=== PATIENT | female | born 1925 | race Caucasian/White ===

== ENCOUNTER 2016-12-31 12:28 | Inpatient (IN) | payer OTHER ==
[~2016-12-31] VITALS: Ht 160 cm; Wt 60.9 kg
[~2016-12-31 12:28] MED LIST: ASPI-496 PO; ENOX40SY4 SQ; LISI-167 PO; LORA-445 PO; MORP10VI10 IVP; OXYC5TAB3 PO; POLY17PO5 PO; SENN1TAB7 PO; TEMA15CA6 PO
[2016-12-31] MEDS ORDERED: ACETAMINOPHEN 325 MG TABLET ONE (13:25)
[2016-12-31] MEDS ORDERED: ACETAMINOPHEN 325 MG TABLET PO ONE (13:30)
[2016-12-31 14:03] LABS: HEMATOCRIT 43.5 % (34.6-47.8); HEMOGLOBIN 14.8 g/dL (11.7-16.4); WHITE BLOOD COUNT 6.1 x10^3/uL (3.4-10)
[2016-12-31 14:11] LABS: BLOOD UREA NITROGEN 17 mg/dL (7-18)
[2016-12-31] MEDS ORDERED: HYDR25TA6 PO (14:15)
[2016-12-31] MEDS ORDERED: FENTANYL PF 100 MCG/2ML ONE ×2 (15:20→16:36)
[2016-12-31] MEDS: FENTANYL PF 100 MCG/2ML IVPush PRN ×2 (15:22→15:50)
[2016-12-31] MEDS ORDERED: FENTANYL PF 100 MCG/2ML IVPush PRN (16:00)
[2016-12-31] MEDS ORDERED: POTASSIUM CHLORIDE 40 MEQ in SODIUM CHLORIDE 0.9% 500 ML IV ONE (16:00)
[2016-12-31] MEDS: POTASSIUM CHLORIDE 40 MEQ in SODIUM CHLORIDE 0.9% 1,000 ML IV SCH ×2 (16:25→22:18)
[2016-12-31] MEDS ORDERED: ONDANSETRON 2MG/ML, 2ML IVPush PRN ×2 (16:30→17:30)
[2016-12-31] MEDS ORDERED: BISACODYL 10 MG SUPP PR PRN (16:30)
[2016-12-31] MEDS ORDERED: LABETALOL 5MG/ML, 20ML IVPush PRN (16:30)
[2016-12-31] MEDS ORDERED: POLYETHYLENE GLYCOL 17 GM PACKET PO PRN (16:30)
[2016-12-31] MEDS ORDERED: DOCUSATE 100 MG CAPSULE PO PRN (16:30)
[2016-12-31] MEDS ORDERED: ACETAMINOPHEN 325 MG TABLET PO PRN (16:30)
[2016-12-31] MEDS ORDERED: ONDANSETRON ODT 4 MG PO PRN (16:30)
[2016-12-31] MEDS ORDERED: morphine SULFATE 10 MG/ML, 1ML IVPush PRN (16:30)
[2016-12-31] MEDS ORDERED: MIDAZOLAM 1 MG/ML, 2ML ONE (16:36)
[2016-12-31] MEDS ORDERED: CEFAZOLIN 1,000 MG ONE (16:50)
[2016-12-31] MEDS ORDERED: EPHEDRINE 50 MG/ML, 1ML ONE (16:50)
[2016-12-31] MEDS ORDERED: DEXAMETHASONE 4 MG/ML, 1ML ONE (16:50)
[2016-12-31] MEDS ORDERED: ONDANSETRON 2MG/ML, 2ML ONE (16:50)
[2016-12-31] MEDS ORDERED: PROPOFOL 10 MG/ML, 20ML ONE (16:50)
[2016-12-31] MEDS ORDERED: FENTANYL PF 100 MCG/2ML IV PRN (17:30)
[2016-12-31] MEDS ORDERED: MEPERIDINE/PF 25MG/0.5ML IVPush PRN (17:30)
[2016-12-31] MEDS ORDERED: LABETALOL 5MG/ML, 20ML IV PRN (17:30)
[2016-12-31] MEDS ORDERED: HYDROmorphone 1 MG/ML, 1ML IV PRN (17:30)
[2016-12-31] MEDS ORDERED: hydrALAzine 20 MG/ML, 1ML IV PRN (17:30)
[2016-12-31] MEDS ORDERED: METOCLOPRAMIDE 5 MG/ML, 2ML IV PRN (17:30)
[2016-12-31] MEDS ORDERED: HYDROcodone/APAP 7.5-325MG/15ML UDC PO PRN (17:30)
[2016-12-31] MEDS: LACTATED RINGERS 1,000 ML IV SCH (20:00)
[2016-12-31] MEDS ORDERED: DO NOT GIVE MC PRN (20:00)
[2016-12-31] MEDS ORDERED: SODIUM CHLORIDE FLUSH 10ML SYR IVF PRN (20:00)
[2016-12-31] MEDS ORDERED: morphine SULFATE 10 MG/ML, 1ML IV PRN (20:00)
[2017-01-01 00:08] VITALS: BP 120/68
[2017-01-01] MEDS: HYDROcodone/APAP 5/325 TABLET PO PRN ×2 (00:47→05:49)
[2017-01-01] MEDS: CEFAZOLIN PMX 1GM/50ML 50 ML IVPB SCH ×3 (00:47→16:40)
[2017-01-01 02:39] VITALS: BP 121/75
[2017-01-01 06:30] LABS: HEMATOCRIT 35.9 % (34.6-47.8); HEMOGLOBIN 12.4 g/dL (11.7-16.4); WHITE BLOOD COUNT 6.3 x10^3/uL (3.4-10)
[2017-01-01 06:42] LABS: ASPARTATE AMINO TRANSFERASE 13 U/L (15-37); BLOOD UREA NITROGEN 13 mg/dL (7-18)
[2017-01-01] MEDS: LACTATED RINGERS 1,000 ML IV SCH ×2 (07:21→22:02)
[2017-01-01 07:27] VITALS: BP 127/74
[2017-01-01] MEDS: HYDROCHLOROTHIAZIDE 25 MG TABLET PO SCH (09:23)
[2017-01-01 14:00] VITALS: BP 123/84
[2017-01-01] MEDS ORDERED: LORazepam 0.5MG TABLET PO PRN (15:30)
[2017-01-01] MEDS: FOLIC ACID 1 MG TABLET PO SCH (16:40)
[2017-01-01] MEDS: THIAMINE 100MG TABLET PO SCH (16:40)
[2017-01-01] MEDS: MULTIVITAMIN 1 TABLET PO SCH (16:40)
[2017-01-01 19:34] VITALS: BP 104/65
[2017-01-01] MEDS ORDERED: LORazepam 1MG TABLET ONE (22:32)
[2017-01-02 01:51] VITALS: BP 126/72
[2017-01-02 05:37] LABS: BLOOD UREA NITROGEN 12 mg/dL (7-18)
[2017-01-02 06:55] VITALS: BP 146/78
[2017-01-02] MEDS: THIAMINE 100MG TABLET PO SCH (08:52)
[2017-01-02] MEDS: FOLIC ACID 1 MG TABLET PO SCH (08:52)
[2017-01-02] MEDS: HYDROCHLOROTHIAZIDE 25 MG TABLET PO SCH (08:52)
[2017-01-02] MEDS: MULTIVITAMIN 1 TABLET PO SCH (08:52)
[2017-01-02] MEDS ORDERED: POTASSIUM CHLORIDE 20 MEQ TAB.ER.PRT PO ONE (09:00)
[2017-01-02] MEDS: LACTATED RINGERS 1,000 ML IV SCH ×2 (09:46→23:54)
[2017-01-02 12:44] VITALS: BP 164/77
[2017-01-02 20:30] VITALS: BP 132/78
[2017-01-03 02:58] VITALS: BP 124/74
[2017-01-03 07:14] VITALS: BP 162/85
[2017-01-03] MEDS: THIAMINE 100MG TABLET PO SCH (09:11)
[2017-01-03] MEDS: FOLIC ACID 1 MG TABLET PO SCH (09:11)
[2017-01-03] MEDS: MULTIVITAMIN 1 TABLET PO SCH (09:11)
[2017-01-03] MEDS: HYDROCHLOROTHIAZIDE 25 MG TABLET PO SCH (09:11)
[2017-01-03] MEDS: HYDROcodone/APAP 5/325 TABLET PO PRN (09:14)
[2017-01-03 12:25] LABS: BLOOD UREA NITROGEN 12 mg/dL (7-18)
[2017-01-03 14:00] VITALS: BP 156/72
[2017-01-03] MEDS: POTASSIUM CHLORIDE 20 MEQ TAB.ER.PRT PO SCH ×2 (14:35→22:16)
[2017-01-03 20:04] VITALS: BP 149/99
[2017-01-04 02:58] VITALS: BP 149/84
[2017-01-04 06:57] VITALS: BP 146/78
[2017-01-04] MEDS: FOLIC ACID 1 MG TABLET PO SCH (07:52)
[2017-01-04] MEDS: HYDROCHLOROTHIAZIDE 25 MG TABLET PO SCH (07:52)
[2017-01-04] MEDS: MULTIVITAMIN 1 TABLET PO SCH (10:03)
[2017-01-04] MEDS: THIAMINE 100MG TABLET PO SCH (10:03)
[2017-01-04] MEDS ORDERED: THIA100T6 PO (10:28)
[2017-01-04] MEDS ORDERED: FOLI-17 PO (10:28)
[2017-01-04] MEDS ORDERED: MULT1TAB60 PO (10:28)
[2017-01-04 12:42] VITALS: BP 156/66
== END 2017-01-04 13:36 | disposition home or self-care (01) | DRG 580 ==
LOC: OR 15:44 → EDIP 15:45 → OR 15:56 → 4NOR 19:23 → DCLOUNGE 01-04 13:20
PROVIDERS: ADMIT Internal Medicine; ATTEND Internal Medicine
PROC: 0KC90ZZ Extirpation of Matter from Right Lower Arm and Wrist Muscle, Open Approach (ICD-10-PCS; 2016-12-31)
PROC: 0X3D0ZZ Control Bleeding in Right Lower Arm, Open Approach (ICD-10-PCS; principal; 2016-12-31 16:00)
DX: S50.11XA Contusion of right forearm, initial encounter (principal); E87.1 Hypo-osmolality and hyponatremia; I10 Essential (primary) hypertension; W18.30XA Fall on same level, unspecified, initial encounter; Z66 Do not resuscitate; E87.6 Hypokalemia; M54.16 Radiculopathy, lumbar region; Y93.89 Activity, other specified; Y92.89 Other specified places as the place of occurrence of the external cause; Y99.8 Other external cause status; Z90.710 Acquired absence of both cervix and uterus; Z82.49 Family history of ischemic heart disease and other diseases of the circulatory system
CPT/HCPCS: 36415; 80048; 80053; 83735; 84132; 85025; 85610; 85730; 93005; 96374; J0690; J1100; J2250; J2405; J2704; J3010; J3480; J7030; J7120